=== PATIENT | male | born 1955 | race Caucasian/White ===

== ENCOUNTER 2023-10-15 05:33 | Inpatient (IN) | payer BC, OTHER ==
[2023-10-15] MEDS ORDERED: ACETAMINOPHEN INJECTION 100 ML IVPB ONE (07:51)
[2023-10-15] MEDS ORDERED: FAMOTIDINE 20 MG/50 ML IVPB 20 MG/50 ML MG IVPB ONE (07:51)
[2023-10-15] MEDS: ACETAMINOPHEN 1000 MG/100 ML BAG IVPB ONE (07:57)
[2023-10-15] MEDS: FAMOTIDINE 20 MG/50 ML IVPB 20 MG/50 ML MG IVPB ONE (07:57)
[2023-10-15 08:13] LABS: POTASSIUM 4.2 mmol/L (3.5-5.1)
[2023-10-15 08:16] LABS: BLOOD UREA NITROGEN 23.9 mg/dL (7-18); CALCIUM 8.7 mg/dL (8.5-10.1)
[2023-10-15 08:17] LABS: ALBUMIN 3.8 g/dl (3.4-5.0); INR 0.93 (0.83-1.09); PROTHROMBIN TIME (PATIENT) 10.8 SEC (9.7-13.0)
[2023-10-15 08:19] LABS: CREATININE 0.9 mg/dL (0.55-1.3)
[2023-10-15 08:20] LABS: ACTIVATED PTT 28.6 SECONDS (25.2-36.5); BASO % 0.4 % (0-2.0); EOS % 0.6 % (0-4.5); HEMATOCRIT 42.9 % (35.4-49); HEMOGLOBIN 14.4 GM/dL (11.7-16.9); LYMPH % 10.9 % (8-40); MCH 31.6 pg (25.7-33.7); MCHC 33.6 g/dl (32.0-35.9); MEAN PLT VOLUME 9.4 fl (7.5-11.1); MONO % 11.8 % (3.8-10.2); NEUT % 76.3 % (42.8-82.8); PLATELET COUNT 163 10^3/uL (134-434); RBC 4.57 M/mm3 (4.00-5.60); RDW 13.2 % (11.9-15.9); WHITE BLOOD COUNT 7.7 K/mm3 (4.0-10.0)
[2023-10-15 08:21] LABS: BILIRUBIN,TOTAL 0.5 mg/dL (0.2-1); TOT PROT 7.2 g/dl (6.4-8.2)
[2023-10-15 08:24] LABS: N-TERMINAL BNP 73.8 pg/ml (5-125)
[2023-10-15] MEDS ORDERED: ALBUTEROL SO4 2.5/IPRATROPIUM 0.5 INH SOL 3 ML VIAL.NEB. NEB ONE ×2 (10:46→15:34)
[2023-10-15] MEDS: ALBUTEROL SO4 2.5/IPRATROPIUM 0.5 INH SOL 3 ML VIAL.NEB. NEB SCH ×2 (11:37→15:41)
[2023-10-15] MEDS ORDERED: CEFTRIAXONE 1 GM/50 ML BAG ONE (14:50)
[2023-10-15] MEDS ORDERED: NIFEdipine E.R. 30 MG TABLET PO ONE (14:50)
[2023-10-15] MEDS ORDERED: methylPREDNISolone NA SUCC 125 MG/2 ML VIAL ONE (14:50)
[2023-10-15] MEDS ORDERED: AZITHROMYCIN IVPB 500 MG/250 ML BAG IVPB ONE (14:51)
[2023-10-15] MEDS: CEFTRIAXONE 1 GM in DEXTROSE 5%-WATER - 50 ML IVPB SCH (15:06)
[2023-10-15] MEDS: NIFEdipine E.R. 30 MG TABLET PO SCH (15:06)
[2023-10-15] MEDS: methylPREDNISolone NA SUCC 125 MG/2 ML VIAL IVPUSH ONE (15:06)
[2023-10-15] MEDS: AZITHROMYCIN IVPB 500 MG/250 ML BAG IVPB SCH (15:07)
[2023-10-15 16:15] LABS: URINE APPEARANCE CLEAR; URINE BILIRUBIN NEGATIVE (NEGATIVE); URINE COLOR YELLOW; URINE GLUCOSE (UA) NEGATIVE (NEGATIVE); URINE KETONE NEGATIVE (NEGATIVE)
[2023-10-15 16:16] LABS: URINE LEUK ESTERASE NEGATIVE (NEGATIVE); URINE NITRITE NEGATIVE (NEGATIVE); URINE PROTEIN TRACE (NEGATIVE)
[2023-10-15 18:19] VITALS: BMI 33.9
[2023-10-15] MEDS: ACETAMINOPHEN 325 MG TABLET (FP) PO ONE (23:09)
[2023-10-15] MEDS: MELATONIN 5 MG TABLETS PO ONE (23:10)
[2023-10-15] MEDS: FAMOTIDINE 20 MG TABLET PO ONE (23:10)
[2023-10-16 09:25] LABS: BASO % 0.2 % (0-2.0); HEMATOCRIT 39.2 % (35.4-49); HEMOGLOBIN 13.3 GM/dL (11.7-16.9); LYMPH % 19.3 % (8-40); MCH 31.6 pg (25.7-33.7); MCHC 33.9 g/dl (32.0-35.9); MEAN CELL VOLUME 93.2 fl (80-96); MEAN PLT VOLUME 9.1 fl (7.5-11.1); MONO % 12.6 % (3.8-10.2); NEUT % 67.9 % (42.8-82.8); PLATELET COUNT 176 10^3/uL (134-434); RBC 4.21 M/mm3 (4.00-5.60); RDW 13.2 % (11.9-15.9); WHITE BLOOD COUNT 4.8 K/mm3 (4.0-10.0)
[2023-10-16 09:33] LABS: POTASSIUM 3.7 mmol/L (3.5-5.1)
[2023-10-16 09:34] LABS: CALCIUM 8.8 mg/dL (8.5-10.1)
[2023-10-16 09:35] LABS: BLOOD UREA NITROGEN 23.1 mg/dL (7-18)
[2023-10-16 09:38] LABS: CREATININE 0.8 mg/dL (0.55-1.3)
[2023-10-16] MEDS: methylPREDNISolone NA SUCC 40 MG/1 ML VIAL IVPUSH SCH (13:55)
[2023-10-16] MEDS ORDERED: ACETAMINOPHEN 325 MG TABLET (FP) PO PRN (14:45)
[2023-10-16] MEDS: VALSARTAN 160 MG TABLET PO SCH (15:52)
[2023-10-16] MEDS: ENOXAPARIN NA (PORCINE) 40 MG/0.4 ML DISP.SYRIN SQ SCH (15:53)
[2023-10-16] MEDS: ATORVASTATIN CA 80 MG TABLET (FP) PO SCH (21:38)
[2023-10-16] MEDS: MELATONIN 5 MG TABLETS PO SCH (21:39)
[2023-10-16] MEDS: POLYETHYLENE GLYCOL (HEALTHYLAX) 3350 17 GM PACKET PO SCH (21:39)
[2023-10-16] MEDS: SENNOSIDES 8.8 MG/5 ML SYRUP PO SCH (21:39)
[2023-10-17 09:33] LABS: HEMATOCRIT 41.4 % (35.4-49); HEMOGLOBIN 13.8 GM/dL (11.7-16.9); MCH 31.4 pg (25.7-33.7); MCHC 33.3 g/dl (32.0-35.9); MEAN CELL VOLUME 94.3 fl (80-96); PLATELET COUNT 189 10^3/uL (134-434); RBC 4.39 M/mm3 (4.00-5.60); RDW 13.2 % (11.9-15.9); WHITE BLOOD COUNT 7.3 K/mm3 (4.0-10.0)
[2023-10-17 09:53] LABS: POTASSIUM 3.7 mmol/L (3.5-5.1)
[2023-10-17 10:28] LABS: CALCIUM 9.1 mg/dL (8.5-10.1)
[2023-10-17 10:29] LABS: ALBUMIN 3.5 g/dl (3.4-5.0); BLOOD UREA NITROGEN 23.3 mg/dL (7-18); MAGNESIUM 2.2 mg/dL (1.8-2.4)
[2023-10-17 10:33] LABS: BILIRUBIN,TOTAL 0.7 mg/dL (0.2-1); TOT PROT 6.8 g/dl (6.4-8.2)
[2023-10-17] MEDS: methylPREDNISolone NA SUCC 40 MG/1 ML VIAL IVPUSH SCH ×2 (11:23→17:07)
[2023-10-17] MEDS: NICOTINE 14 MG/24 HOURS TOPICAL PATCH TD SCH (11:24)
[2023-10-17] MEDS: guaiFENesin 600 MG TABLET.ER (FP) PO SCH (11:24)
[2023-10-17 15:47] VITALS: RESP 18
[2023-10-18 09:56] LABS: BASO % 0.1 % (0-2.0); HEMOGLOBIN 13.7 GM/dL (11.7-16.9); LYMPH % 12.8 % (8-40); MCH 31.5 pg (25.7-33.7); MCHC 33.5 g/dl (32.0-35.9); MEAN CELL VOLUME 94.2 fl (80-96); MEAN PLT VOLUME 9.2 fl (7.5-11.1); MONO % 6.3 % (3.8-10.2); NEUT % 80.8 % (42.8-82.8); PLATELET COUNT 202 10^3/uL (134-434); RBC 4.35 M/mm3 (4.00-5.60); RDW 13.1 % (11.9-15.9); WHITE BLOOD COUNT 7.6 K/mm3 (4.0-10.0)
[2023-10-18 10:24] LABS: POTASSIUM 4.1 mmol/L (3.5-5.1)
[2023-10-18] MEDS ORDERED: MAG HYDROX/AL HYDROX/SIMETH 30 ML UNIT-DOSE CUP PO PRN (10:37)
[2023-10-18 10:46] LABS: CALCIUM 9.3 mg/dL (8.5-10.1)
[2023-10-18 10:47] LABS: BLOOD UREA NITROGEN 20.5 mg/dL (7-18)
[2023-10-18] MEDS: PANTOPRAZOLE 40 MG TABLET PO SCH (11:11)
[2023-10-19] MEDS: methylPREDNISolone NA SUCC 40 MG/1 ML VIAL IVPUSH SCH (10:50)
[2023-10-19] MEDS: AZITHROMYCIN 250 MG TABLET PO SCH (10:50)
[2023-10-20 10:17] VITALS: BP 142/61; TEMP 98.4
[2023-10-20] MEDS: DOCUSATE SODIUM 100 MG CAPSULE (FP) PO PRN (10:18)
[2023-10-20] MEDS: methylPREDNISolone NA SUCC 40 MG/1 ML VIAL IVPUSH SCH (10:18)
[2023-10-20 14:25] VITALS: PULSE 96
== END 2023-10-20 17:03 | disposition home or self-care (01) | DRG 190 ==
LOC: JER 05:33 → JERBED 12:40 → J5S 16:49 → OBSVTOIN 10-17 13:41
PROVIDERS: ADMIT Internal Medicine; ATTEND Internal Medicine
DX: J44.0 Chronic obstructive pulmonary disease with (acute) lower respiratory infection (principal); J18.9 Pneumonia, unspecified organism; J44.1 Chronic obstructive pulmonary disease with (acute) exacerbation; I10 Essential (primary) hypertension; E78.5 Hyperlipidemia, unspecified; I25.10 Atherosclerotic heart disease of native coronary artery without angina pectoris; N20.0 Calculus of kidney; K59.00 Constipation, unspecified; R10.13 Epigastric pain; I16.0 Hypertensive urgency; F17.210 Nicotine dependence, cigarettes, uncomplicated; Z95.5 Presence of coronary angioplasty implant and graft
CPT/HCPCS: 0241U-QW; 36415; 71045-TC-FY; 74177-TC; 80048; 80053; 81003; 83690; 83735; 83880; 84484; 85025; 85027; 85610; 85730; 87070; 87086; 87205; 87899; 93005; 93010; 94640; 94761; 97116-GP; 97161-GP; 99285-25; G0378; J0131; Q9967